=== PATIENT | male | born 1935 | race Caucasian/White ===

== ENCOUNTER → 2017-01-22 | Outpatient (CLI) | payer OTHER ==
--- NOTE | 2017-01-23 06:16 | PAP/PSG TECHNICIAN REPORT ---
[facility] Seo Expert Polysomnogram Report Study name: None Report date: 01/23/2017 Study date: 01/22/2017 Referring Physician: Consuelo Aguilar M.D. Name: KATIE PURCELL Interpreting Physician: Ben Villanueva D.O. Date of : 1935 Seo Expert: Sara Resendez [facility]. Sex: Male Age: 81 StudyType: PSG Weight: 250 lbs Height: 81 years, Height 5' 10" Neck Circum:17inches BMI: 35.87 Medications: Levothyroxine 0.112mcg, Lisinopril 20mg, Metoprolol Tartate 50mg, Simvastatin 40mg, ASA 81mg Patient History Study started on room air with no ETCO2 monitoring in room # 6. 81 yr old male here tonight for a diagnostic psg [facility]. He has been using cpap for 25+ years and still has the original machine. He thinks that it starts at 7 and goes up to 10 or he is on bipap at 10/7, not sure. He has a history of a stroke at age 43. He has HTN under control with medication. He had his thyroid removed in 2000. He is in need of a new machine and pressure settings. A split night will be done if he qualifies. ESS=18/24. Neck circ=17inches. Parameters Monitored NPSG: E1-M2, E2-M1, Fp1-M2, Fp2-M1, F3-M2, F4-M2, F4-M1, C3-M2, C4-M2, C4-M1, O1-M2, O2-M2, O2-M1, T3-M2, T4-M1, P3-M2, P4-M1, CHIN1, CHIN2, HR, EKG, Legs, PFLOW, SNOR, FLOW, CFLOW, Tidal Volume, THOR, ABDO, SpO2, PLTH, CPRESS, ETCO2 Wave, ETCO2, pH Sleep Architecture Sleep Stages Time at Lights Off 8:48:02 PM STAGES Time (min.) TST (%) Time at Lights On 5:21:02 AM Wake 342.0 -- Total Recording Time (TRT) 513.50 min. N1 25.0 15 Total Sleep Period (TSP) 487.5 min. N2 139.5 82 Total Sleep Time (TST) 171.0min. N3 6.5 4 Awake Time 342.5 min. REM 0.0 0 Wake after Sleep Onset 317.0 min. Sleep Efficiency (SE) 33 % Sleep Onset Latency (LAVONNE) 25.0 min. Number of Stage 1 Shifts None Awakenings 46 Stage Changes 134 Number of REM periods N/A REM 0.0 0 REM Latency NONE min. NREM 171.0 100 Body Position Analysis Supine Right Left Side Prone Vertical Total Sleep Time (min.) 304.6 0.0 107.5 107.50 0.0 0.0 Total Sleep Time (%) 37% 0% 63% 63 0% N/A% Total Sleep Time REM (min.) 0.0 0.0 0.0 None 0.0 0.0 Total Sleep Time NREM (min.) 63.5 0.0 107.5 None 0.0 0.0 Intermittent Wake (min.) 241.1 0.0 100.9 None 0.0 0.0 Total Sleep Period (%) 62% None None None None None Arousals Myoclonus (PLM) * Events Count Index Events Count Index Spontaneous 41 14 Events Awake (PLMW) 188 33.0 Respiratory 32 15.1 Events Asleep w/ Arousal (PLMA) 4 1.4 PLM 3 1 Events Asleep w/o Arousal (PLMS) 24 8.4 Snoring 8 3 Total Asleep 28 9.8 Total 84 29 Total 216 25 Respiratory Analysis * CA OA MA CH H RERA Total Count 2 7 4 0 67 1 80 Index 0.7 2.5 1.4 0 23.5 0 28.4 Mean Duration 19.6 26.0 18.2 0.00 19.3 16.3 19.8 Longest Duration 20.1 59.2 21.3 0.00 21.3 16.3 59.2 Respiratory Event Summary Total Supine ~Supine Right Left Prone REM NREM Apneas Count 13 9 4 N/A 4 N/A N/A 13 Index 4.6 9 2 N/A 2.2 N/A N/A 5 Hypopneas (4% Desat) Count 67 66 1 N/A 1 N/A N/A 67 Index 23.5 62.4 1 N/A 0.6 N/A N/A 23.5 Apneas & All Hypopneas Count 80 75 5 N/A 5 N/A N/A 80 Index 28.1 71 3 N/A 3 N/A N/A 28.1 Respiratory Events (Application Packaging Specialist+All Hyp+RERA) Count 80 76 5 N/A 5 N/A N/A 80 Index 28.4 72 3 N/A 2.8 N/A N/A 28.4 Respiratory Related Arousal Count 32 76 4 N/A 4 N/A N/A 43 Index 15.1 37 2 N/A 2 N/A N/A 15 Snoring Analysis Supine Right Left Prone REM NREM Total Snore duration 2.0 min Snores count 61 N/A 37 N/A N/A 98 98 Snore mean duration 1.2 Sec Snores index 58 N/A 21 N/A N/A 34.4 34.4 TST with snoring (%) 1.2% Desaturation Event Summary: Minimum %SpO2 Event Count Mean/Min/Max Duration(sec.) Desaturation Index % Time In Bed > 90 102 25.8 / 8.5 / 60.0 22.4 54.8 86 - 90 7 21.8 / 13.8 / 35.3 1.9 45.1 81 - 85 0 N/A 0.0 0.1 76 - 80 0 N/A 0.0 0.0 71 - 75 0 N/A 0.0 0.0 66 - 70 0 N/A 0.0 0.0 61 - 65 0 N/A 0.0 0.0 56 - 60 0 N/A 0.0 0.0 51 - 55 0 N/A 0.0 0.0 < 50 0 N/A 0.0 0.0 Total REM NREM Awake <50% 0.0 min. 0.0 min. 0.0 min. 0.0 min. 51 - 60% 0.0 min. 0.0 min. 0.0 min. 0.0 min. 61 - 70% 0.0 min. 0.0 min. 0.0 min. 0.0 min. 71 - 80% 0.0 min. 0.0 min. 0.0 min. 0.0 min. 81 - 90% 225.3 min. 0.0 min. 72.9 min. 152.4 min. 91 - 100% 272.8 min. 0.0 min. 98.0 min. 174.7 min. Average 91 0 91 91 Minimum SpO2 57 N/A 85 57 Desaturation Event Index 12.2 0.0 19.6 9.3 # Desat. Events below 89% 24 N/A 10 14 Time(%) with Saturation below 89% 7.9 0.0 0.6 7.3 Time(min.) with Saturation below 89% 39.4 0.0 3.2 36.2 Time (mins) REM (mins) NREM (mins) % of TST SpO2 Below 90% 36 N/A N36 11.3 SpO2 Below 88% 4 0 0 0 Heart Rate Analysis Min (bpm) Max (bpm) Average (bpm) Awake 51 127 60 NREM 49 74 55 REM N/A N/A N/A Overall 49 74 55 Supplemental O2 Values Minimum O2 level: None Value Start Time End Time Seo Expert Comments Mr. Purcell slept in the left and supine positions. Cardiac arrhythmia and leg movements were noted. No bruxism noted. Snoring was noted and scored as a 2 on a scale of 1 through 5. (0=no snoring, 5=snoring loud enough to be heard through a closed door or down the morin way) He awoke once to use the restroom during the night. He stated that he slept worse than when at home. The final report will be interpreted and signed by a sleep physician. The completed physician report will then be placed in the patient medical record. Therapy (cm H2O) 0 TIB (min.) 513.0 TST (min.) 171.0 Sleep Onset (min.) 25.0 REM Onset From Sleep (min.) NONE Sleep Efficiency % 33 Wakefulness (%) 67 Wakefulness (min.) 342.5 NREM 1 (%) 15 NREM 1 (min.) 25.0 NREM 2 (%) 82 NREM 2 (min.) 139.5 NREM 3 (%) 4 NREM 3 (min.) 6.5 REM (%) 0 REM (min.) 0.0 # Arousals 84 Arousal Index 29 # Snore 98 Snore Index 34.4 AHI 28.1 AHI Supine 71 AHI Non-Supine 3 NREM AHI 28.1 REM AHI N/A RDI 28.4 # Obstructive Apnea 7 # Central Apnea 2 # Mixed Apnea 4 # Hypopneas 67 RERAs 1 Total Respiratory Events 103 Time Below SpO2 89% (min.) 3.2 Mean NREM SpO2 (%) 91 Mean REM SpO2 (%) N/A Mean Sleep SpO2 (%) 91 Min NREM SpO2 (%) 85 Min REM SpO2 (%) N/A Position Supine (min.) 304.6 Position Non-supine (min.) 107.5 LM Index Sleep 9.8 LM Index NREM 9.8 LM Index REM N/A Mean Heart Rate (bpm) 55 Min Heart Rate (bpm) 49
--- NOTE | 2017-01-26 21:13 | POLYSOMNOGRAPH REPORT ---
REFERRING PHYSICIAN: Dr. Consuelo Aguilar, c/o [facility]. CLINICAL DATA: The patient is an 81-year-old male who was referred for a diagnostic sleep study. He has a history of sleep apnea for 25 years and still has his original machine. He is referred through the [facility] in [place] for a diagnostic sleep study. He has a history of a CVA at age 43 and he has hypertension. His BMI is elevated at 35.87. SLEEP ARCHITECTURE: The total sleep period was 487.5 minutes and the total sleep time was only 171.0 minutes. The sleep efficiency was severely reduced to 33%. The sleep onset latency was 25 minutes. Sleep consisted of stage N1 15%, stage N2 82%, stage N3 4%, and REM sleep 0. AROUSAL DATA: The patient had a total of 84 arousals for an index of 29. There were 41 spontaneous arousals, 32 respiratory arousals, 3 PLM arousals, and 8 snoring arousals. PLM DATA: The patient had a total of 28 periodic limb movements of sleep for an index of 9.8. There were only 4 arousals for a PLM arousal index of 1.4. It is notable that he had 188 limb movements during wake. EKG: The underlying cardiac rhythm is normal sinus. The cardiac rates ranged from 49-74 beats per minute. There was an average heart rate of 55 beats per minute. There were rare extrasystoles. RESPIRATORY DATA: The patient had a total of 80 respiratory events including 2 central apneas, 7 obstructive apneas, 4 mixed apneas, and 67 hypopneas. Hypopneas were scored according to the 4% desaturation rule. The longest apnea was 59.2 seconds. The longest hypopnea was 21.3 seconds. The apnea hypopnea index was moderately elevated at 28.1 and was compatible with moderate sleep apnea. OXIMETRY DATA: The average saturation was 91%. The minimum saturation was 57%. I suspect this was technical in nature. He had a total of 4 minutes with saturations less than 88%. 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 Leg movements were noted. No bruxism noted. Snoring was noted and scored as a 2 on a scale of 1 through 5. The patient indicated that he slept worse than he does at home. IMPRESSION: 1. Obstructive sleep apnea -- moderate. COMMENTS: The patient has moderate sleep apnea. It is notable that he had very poor sleep with a severe decrease in sleepy efficiency. This is often seen on patients who are accustomed to wearing CPAP nightly for a long period of time and then go through a diagnostic study without CPAP. A split study could not be done because he had such large amount of time during wake and he did not have significant events until the final half of the night. As noted, he did not have any REM sleep at all. Subsequently, the patient did complain of some right shoulder pain which may have also contributed to his insomnia. It is clear from this study; however, that the patient does require nasal CPAP therapy. RECOMMENDATIONS: 1. The patient should be treated with nasal CPAP. This could be treated by utilizing an auto CPAP. The alternative would be to refer the patient back for a CPAP titration study. If an auto CPAP were utilized would suggest starting the pressure at a minimum of 6 and taking up to a maximum of 18. Compliance data would then need to be obtained and adjustments in pressures could be undertaken based upon the compliance data. 2. It is advised that the patient initiate a weight reduction program in light of his elevation of body mass index of 35.87. Even modest reduction in weight may result in some improvement in sleep disordered breathing. 3. If possible patient should avoid sleeping in the supine position as typically there is more apnea when supine.
== END | disposition home or self-care (01) ==
LOC: C.NEUR 20:00
PROVIDERS: ATTEND Internal Medicine
DX: G47.30 Sleep apnea, unspecified (principal)